=== PATIENT | male | born 1945 | race Caucasian/White ===

== ENCOUNTER 2020-02-17 10:23 | Emergency (ER) | payer MEDICARE, BC ==
[~2020-02-17] VITALS: Ht 175.3 cm; Wt 75.0 kg
[2020-02-17] MEDS ORDERED: ipratropium/albuterol 3ml nebule NEB ONE (11:05)
[2020-02-17 11:23] LABS: BASOPHILS % (AUTO) 0.3 % (0-1); EOSINOPHILS # (AUTO) 0.2 X10'3 (0-0.9); EOSINOPHILS % (AUTO) 1.7 % (0-6); HEMATOCRIT 49.1 % (42.0-52.0); HEMOGLOBIN 16.6 g/dl (14.0-17.9); LYMPHOCYTES # (AUTO) 0.8 X10'3 (1.1-4.8); LYMPHOCYTES % (AUTO) 6.8 % (21-51); MEAN CORPUSCULAR HEMOGLOBIN 31.1 PG (27.0-31.0); MEAN CORPUSCULAR HGB CONC 33.8 g/dL (33.0-36.5); MEAN CORPUSCULAR VOLUME 91.9 FL (78-98); MEAN PLATELET VOLUME 8.8 FL (7.4-10.4); MONOCYTES # (AUTO) 0.4 X10'3 (0-0.9); MONOCYTES % (AUTO) 3.5 % (2-12); NEUTROPHILS # (AUTO) 10.3 X10'3 (1.8-7.7); NEUTROPHILS % (AUTO) 87.7 % (42-75); PLATELET COUNT 212 X10'3 (140-440); RED BLOOD COUNT 5.35 X10'6 (4.70-6.10); RED CELL DISTRIBUTION WIDTH 14.1 % (11.5-14.5); WHITE BLOOD COUNT 11.7 X10'3 (4.5-11.0)
[2020-02-17 11:34] LABS: PARTIAL THROMBOPLASTIN TIME 25 SECONDS (22-32)
[2020-02-17 11:40] LABS: ALANINE AMINOTRANSFERASE 28 U/L (12-78); ALBUMIN/GLOBULIN RATIO 1.4 (1.1-1.5); ALKALINE PHOSPHATASE 59 IU/L (46-116); ANION GAP 7 (8-16); ASPARTATE AMINO TRANSFERASE 18 U/L (10-37); BILIRUBIN,TOTAL 0.5 MG/DL (0.1-1.0); BLOOD UREA NITROGEN 16 MG/DL (7-18); BUN/CREATININE RATIO 15.7 (5.4-32.0); CALCIUM 9.1 MG/DL (8.5-10.1); CHLORIDE 102 MMOL/L (99-107); CREATININE 1.02 MG/DL (0.60-1.10); GLUCOSE 119 MG/DL (70-104); POTASSIUM 4.4 MMOL/L (3.5-5.1); SODIUM 137 MMOL/L (135-145); TOTAL CARBON DIOXIDE 27.8 MMOL/L (24-32); TOTAL PROTEIN 6.9 G/DL (6.4-8.2); eGFR 72 ML/MIN
--- NOTE | 2020-02-17 11:44 | NUR ---
Pt's spouse Ana Rosa phoned with additional history about the patient's illness. Pt gave verbal permission to speak with his . Ana reports his breathing difficulties started in October of this year and he was evaluated at [facility] in [place]. He had blood work, x-rays, CT scan and sputum culture. Pt's sputum was found to have "parainfluenza 4" in the sputum. He has been treated with antibiotics, steroids and nebulizers at home and she reports his symptoms are not improving. She states that he is a patient of Dr. Santizo. Ana's phone number where she can be reached is [phone].
[2020-02-17] MEDS ORDERED: iohexol 350MG/ML 100ml bottle IV ONE (12:35)
[2020-02-17] MEDS ORDERED: methylPREDNISolone sod succ 125mg/2ml vial IV ONE (13:35)
[2020-02-17] MEDS ORDERED: albuterol 2.5 MG/3 ML nebule NEB ONE (13:35)
--- NOTE | 2020-02-17 14:11 | NUR ---
Pt ambulated from his room to the restroom without difficulty or any increase in SOB. Pt is steady on his feet.
[2020-02-17 14:26] VITALS: BP 123/83
== END 2020-02-17 14:28 | disposition home or self-care (01) ==
LOC: ER 10:24
DX: R06.02 Shortness of breath (principal); Z88.5 Allergy status to narcotic agent
CPT/HCPCS: 36415; 71045; 71275; 80053; 83880; 84484; 85025; 85610; 85730; 94640; 96374; 99285; J2930; Q9967; 94760